=== PATIENT | male | born 1995 | race Caucasian/White ===

== ENCOUNTER 2017-05-11 11:30 | Emergency (ER) | payer OTHER ==
[2017-05-11] MEDS: LIDOCAINE/MYLANTA 40 ML BTL PO (13:58)
[2017-05-11] MEDS: ONDANSETRON 4 MG INJ IV (13:59)
[2017-05-11] MEDS: SOD CHLORIDE 0.9% 1,000 ML IV (13:59)
[2017-05-11] MEDS: FAMOTIDINE 20 MG TAB PO (13:59)
[2017-05-11 14:04] LABS: ADD MAN DIFF? NO
[2017-05-11 14:06] LABS: WHITE BLOOD COUNT 5.3 10^3/ul (4.8-10.8)
[2017-05-11 14:06] LABS: BASOPHILS % 0.6 % (0.0-2.0); EOSINOPHILS # 0.1 10^3/ul (0.0-0.5); EOSINOPHILS % 1.3 % (0.0-7.0); HEMOGLOBIN 14.3 g/dl (14.0-18.0); LYMPHOCYTES # 1.2 10^3/ul (0.8-2.9); MEAN CORPUSCULAR HEMOGLOBIN 30.7 pg (29.0-33.0); MEAN CORPUSCULAR HGB CONC 33.3 g/dl (32.0-37.0); MEAN CORPUSCULAR VOLUME 92.3 fl (72.0-104.0); MEAN PLATELET VOLUME 8.6 fl (7.4-10.4); MONOCYTE # 0.6 10^3/ul (0.3-0.9); MONOCYTES % 11.8 % (0.0-13.0); NEUTROPHIL # 3.4 10^3/ul (1.6-7.5); NEUTROPHILS % 63.9 % (30.0-74.0); PLATELET COUNT 239 10^3/UL (140-415); RED BLOOD COUNT 4.66 10^6/ul (4.70-6.10); RED CELL DISTRIBUTION WIDTH 13.2 % (11.5-14.5)
[2017-05-11 14:23] LABS: ALBUMIN/GLOBULIN RATIO 1.65; ANION GAP 14 (8-16)
[2017-05-11 14:28] LABS: ALANINE AMINOTRANSFERASE 19 IU/L (13-69); ALBUMIN 5.3 g/dl (3.3-4.9); ALKALINE PHOSPHATASE 48 IU/L (42-121); ASPARTATE AMINO TRANSFERASE 21 IU/L (15-46); BILIRUBIN,INDIRECT 0.3 mg/dl (0-1.1); BILIRUBIN,TOTAL 0.3 mg/dl (0.2-1.3); BLOOD UREA NITROGEN 15 mg/dl (7-20); CALCIUM 9.7 mg/dl (8.4-10.2); CARBON DIOXIDE 30 mmol/L (21-31); CHLORIDE 103 mmol/L (97-110); CREATININE 0.77 mg/dl (0.61-1.24); GLUCOSE 107 mg/dl (70-220); LIPASE 36 U/L (23-300); SODIUM 143 mmol/L (135-144); TOTAL PROTEIN 8.5 g/dl (6.1-8.1)
[2017-05-11 15:19] LABS: ADD UMIC NO; UR ASCORBIC ACID NEGATIVE (NEGATIVE); UR BILIRUBIN (Dip) NEGATIVE (NEGATIVE); UR BLOOD (Dip) NEGATIVE (NEGATIVE); UR CLARITY CLEAR (CLEAR); UR COLOR COLORLESS (YELLOW); UR GLUCOSE (Dip) NEGATIVE (NEGATIVE); UR KETONES (Dip) NEGATIVE (NEGATIVE); UR LEUKOCYTE ESTERASE (Dip) NEGATIVE Leu/ul (NEGATIVE); UR NITRITE (Dip) NEGATIVE (NEGATIVE); UR SPECIFIC GRAVITY (Dip) 1.002 (1.003-1.030); UR TOTAL PROTEIN (Dip) NEGATIVE (NEGATIVE); UR UROBILINOGEN (Dip) NEGATIVE (NEGATIVE)
[2017-05-11] MEDS: ACETAMINOPHEN 325 MG TAB PO (16:44)
== END 2017-05-11 16:50 | disposition home or self-care (01) ==
LOC: FTE 11:30
DX: R10.12 Left upper quadrant pain (principal); R19.7 Diarrhea, unspecified; E03.9 Hypothyroidism, unspecified; F17.210 Nicotine dependence, cigarettes, uncomplicated
CPT/HCPCS: 36415; 80053; 81003; 83690; 85025; 96374; 99284-25

== ENCOUNTER 2017-09-28 22:58 | Emergency (ER) | payer OTHER ==
[2017-09-29] MEDS: LIDOCAINE 1% (MDV) 10 ML INJ INFIL (02:58)
[2017-09-29] MEDS: DIPHTH/TET/ACEL PERTUSS (ADULT) 0.5 ML VIAL IM* (02:59)
== END 2017-09-29 05:00 | disposition home or self-care (01) ==
LOC: FTE 22:58
DX: S61.012A Laceration without foreign body of left thumb without damage to nail, initial encounter (principal); S50.311A Abrasion of right elbow, initial encounter; S50.312A Abrasion of left elbow, initial encounter; S70.211A Abrasion, right hip, initial encounter; S70.212A Abrasion, left hip, initial encounter; E03.9 Hypothyroidism, unspecified; W25.XXXA Contact with sharp glass, initial encounter; Y92.9 Unspecified place or not applicable; Z23 Encounter for immunization
CPT/HCPCS: 12001; 73130-LT; 90471; 90715; 99283-25

== ENCOUNTER 2017-10-05 21:01 | Emergency (ER) | payer OTHER | END 2017-10-06 03:00 | disposition home or self-care (01) | LOC: FTE 21:01 | DX: Z48.02 Encounter for removal of sutures (principal); E03.9 Hypothyroidism, unspecified | CPT/HCPCS: 99281; Z7502 ==